=== PATIENT | male | born 1990 | race Two or more races ===

== ENCOUNTER 2021-09-25 16:49 | Inpatient (IN) | payer MEDICAID ==
[~2021-09-25] VITALS: Ht 167.6 cm; Wt 86.6 kg
[2021-09-25] MEDS: LACTATED RINGERS 1,000 ML IV SCH
--- NOTE | 2021-09-25 14:02 | NUR ---
DC PLANN[age] YRS OLD MALE PATIENT WAS ADMITTED FROM HOME WITH A DX OF PANCREATITIS. PATIENT HAS NO MEDICAL HISTORY. LIPASE LEVEL ON ADMISSION 2638. CT ABD SHOWED PANCREATITIS. US ABD SHOWED CHOLELITHIASIS. ADMINISTERED IVF, IV ABX ZOSYN AND PAIN MEDICATION. CONSULTED WITH GI AND GENERAL SURGEON. DC PLAN PER MD'S RECOMMENDATION. CM TO FOLLOW Addendum: 09/28/21 at 1422 by oPlina Rodriguez RN DC PLANNING: S/P LAP ESE DAY #1 TOLERATED WELL CONTINUE IV ABX ZOSYN . SEEN BY GI DR MUSTAFA STATED ERCP TO BE CONSIDERED IF THE INTRAOPERATIVE CHOLANGIOGRAM IS ABNORMAL. DC PLAN TO GO HOME WHEN STABLE. CM TO FOLLOW.
[2021-09-25 16:58] VITALS: BP 148/72
--- NOTE | 2021-09-25 17:02 | NUR ---
Patient ambulated to bed 1 with steady gait
--- NOTE | 2021-09-25 17:18 | NUR ---
31 y/o male with c/o abdominal pain x yesterday. Patient has 10/10 pain to abdomen. Patient has nausea, vomiting and dark urine. Patient denies being around anyone who is sick or eating new food. Patient's last bowel movement was 2 days ago. Medical History: Denies NKDA
[2021-09-25] MEDS ORDERED: ONDANSETRON 4 MG/2 ML VIAL IVP ONE ×2 (17:20→19:15)
--- NOTE | 2021-09-25 17:32 | NUR ---
31/M PRESENTS TO ED WITH C/O ABDOMINAL PAIN, NAUSEA AND VOMITING SINCE LAST NIGHT. PATIENT REPORTS PAIN CAME ON SUDDENLY AND PROGRESSIVELY GOT WORSE THROUGHOUT THE NIGHT. PATIENT STATES HE TOOK MOTRIN WITH NO RELIEF IN PAIN, PATIENT DENIES FEVERS, DIARRHEA OR RECENT SICK CONTACTS.
[2021-09-25 17:43] LABS: BASOPHILS % (AUTO) 0.2 % (0.0-2.0); HEMATOCRIT 46.2 % (36-52); HEMOGLOBIN 15.3 g/dL (12.0-18.0); LYMPHOCYTES # (AUTO) 0.9 K/uL (2.0-11.5); LYMPHOCYTES % (AUTO) 6.8 % (20.5-51.1); MEAN CORPUSCULAR HEMOGLOBIN 30 pg (27-31); MEAN CORPUSCULAR HGB CONC 33 g/dL (33-37); MEAN CORPUSCULAR VOLUME 89.7 fL (80-94); MONOCYTES # (AUTO) 0.8 K/uL (0.8-1.0); MONOCYTES % (AUTO) 6.4 % (1.7-9.3); NEUTROPHILS # (AUTO) 11.4 K/uL (1.8-7.7); NEUTROPHILS % (AUTO) 86.6 % (42.2-75.2); PLATELET COUNT (AUTO) 210 K/uL (140-450); RED BLOOD CELL COUNT(AUTO) 5.15 MIL/uL (4.20-6.10); RED CELL DISTRIBUTION WIDTH 13.4 % (11.6-13.7); WHITE BLOOD COUNT (AUTO) 13.2 K/uL (4.8-10.8)
[2021-09-25 18:15] LABS: ALBUMIN 3.9 g/dL (3.4-5.0); CARBON DIOXIDE 24.7 mmol/L (21-32); CREATININE 0.9 mg/dL (0.6-1.3); POTASSIUM 3.7 mmol/L (3.5-5.1); TOTAL BILIRUBIN 2.2 mg/dL (0.0-1.0)
--- NOTE | 2021-09-25 18:35 | NUR ---
Patient ambulated to restroom, urine sample obtained.
[2021-09-25] MEDS ORDERED: MORPHINE SULFATE 4 MG/ML SYR IVP ONE (18:45)
[2021-09-25] MEDS ORDERED: NACL 0.9% 2,000 ML IV ONE (18:45)
[2021-09-25] MEDS ORDERED: HYDROmorphone PFS 2 MG/ML SYR IVP ONE (19:15)
[2021-09-25 19:18] LABS: BILIRUBIN,URINE 2+ (NEGATIVE); BLOOD, URINE NEGATIVE (NEGATIVE); LEUKOCYTE ESTERASE ,URINE NEGATIVE (NEGATIVE); NITRITE, URINE POSITIVE (NEGATIVE); UGLUCOSE TRACE (NEGATIVE)
[2021-09-25 19:22] LABS: APPEARANCE,URINE CLOUDY (CLEAR); COLOR,URINE AMBER (YELLOW)
--- NOTE | 2021-09-25 19:25 | NUR ---
Patient report given to KEEGAN Hawkins. Transfer of care at this time.
--- NOTE | 2021-09-25 19:45 | NUR ---
PATIENT RESTING IN BED WITH EYES CLOSED. BED LOW AND LOCKED. MOHAMUD SIDE RAILS FOR SAFETY. ALL NEEDS MET.
--- NOTE | 2021-09-25 19:59 | NUR ---
US AT BEDSIDE
[2021-09-25] MEDS ORDERED: PIPERACILLIN/TAZOBACTAM 3.375 GM in DEXTROSE 5% 50 ML IV ONE (21:05)
[2021-09-25] MEDS ORDERED: PIPERACILLIN/TAZOBACTAM 3.375 GM VIAL IV ONE (21:30)
[2021-09-25] MEDS ORDERED: POTASSIUM CHLORIDE 10 MEQ TABER PO PRN (22:05)
[2021-09-25] MEDS ORDERED: guaiFENesin DM 200/20 MG-10 ML 10 ML UDC PO PRN (22:05)
[2021-09-25] MEDS ORDERED: DOCUSATE SODIUM 100 MG GELCAP PO PRN (22:05)
[2021-09-25] MEDS ORDERED: HYDROcodone/APAP 7.5/325 MG 1 TAB PO PRN (22:05)
[2021-09-25] MEDS ORDERED: ONDANSETRON 4 MG/2 ML VIAL IM/IVP PRN (22:05)
[2021-09-25 22:52] LABS: MAGNESIUM 1.7 mg/dL (1.8-2.4); PHOSPHORUS 2.8 mg/dL (2.5-4.9)
--- NOTE | 2021-09-26 00:22 | NUR ---
SPOKE TO TINY AND GAVE UPDATE ON PATIENTS STATUS. WOULD LIKE TO BE UPDATED WITH CHANGES [phone]
--- NOTE | 2021-09-26 04:00 | NUR ---
NEW BAG OF IVF STARTED. TOLERATING WELL. ALL NEEDS MET
[2021-09-26] MEDS: LACTATED RINGERS 1,000 ML IV SCH ×4 (04:28→20:15)
--- NOTE | 2021-09-26 06:30 | NUR ---
PATIENT REPOSITIONED. BED LOW AND LOCKED. ALL NEEDS MET.
--- NOTE | 2021-09-26 07:13 | NUR ---
REPORT GIVEN TO KEEGAN HITCHCOCK. TRANSFER OF CARE.
[2021-09-26 07:18] LABS: BASOPHILS % (AUTO) 0.2 % (0.0-2.0); HEMATOCRIT 41.7 % (36-52); HEMOGLOBIN 14.1 g/dL (12.0-18.0); LYMPHOCYTES # (AUTO) 1.4 K/uL (2.0-11.5); LYMPHOCYTES % (AUTO) 9.7 % (20.5-51.1); MEAN CORPUSCULAR HEMOGLOBIN 30 pg (27-31); MEAN CORPUSCULAR HGB CONC 34 g/dL (33-37); MEAN CORPUSCULAR VOLUME 89.5 fL (80-94); MONOCYTES # (AUTO) 1.1 K/uL (0.8-1.0); NEUTROPHILS # (AUTO) 11.7 K/uL (1.8-7.7); NEUTROPHILS % (AUTO) 82.1 % (42.2-75.2); PLATELET COUNT (AUTO) 192 K/uL (140-450); RED BLOOD CELL COUNT(AUTO) 4.66 MIL/uL (4.20-6.10); RED CELL DISTRIBUTION WIDTH 13.5 % (11.6-13.7); WHITE BLOOD COUNT (AUTO) 14.3 K/uL (4.8-10.8)
--- NOTE | 2021-09-26 07:20 | NUR ---
Report received from KEEGAN Hawkins for transfer of care.
[2021-09-26 08:00] LABS: ALBUMIN 3.4 g/dL (3.4-5.0); BILIRUBIN,DIRECT 0.8 mg/dL (0.0-0.3); TOTAL BILIRUBIN 2.1 mg/dL (0.0-1.0)
[2021-09-26 08:06] LABS: ANION GAP 15.1 (8-16); CARBON DIOXIDE 23.7 mmol/L (21-32); CREATININE 0.8 mg/dL (0.6-1.3); POTASSIUM 3.8 mmol/L (3.5-5.1)
[2021-09-26] MEDS: PANTOPRAZOLE 40 MG TABEC PO SCH (08:51)
[2021-09-26] MEDS: MORPHINE SULFATE 2 MG/ML SYR IVP PRN ×2 (08:54→19:46)
--- NOTE | 2021-09-26 09:27 | NUR ---
Per Dr. Escudero patient can be on clear liquids.
--- NOTE | 2021-09-26 10:06 | NUR ---
Patient is resting in bed, respirations even and unlabored. Needs met by staff.
[2021-09-26] MEDS ORDERED: PIPERACILLIN/TAZOBACTAM 3.375 GM VIAL IV ONE ×2 (11:45→20:04)
[2021-09-26] MEDS: PIPERACILLIN/TAZOBACTAM 3.375 GM in DEXTROSE 5% 50 ML IV SCH ×2 (11:55→20:04)
--- NOTE | 2021-09-26 11:59 | NUR ---
Patient was offered his lunch tray. Patient does not want to eat right now. Tray left at bedside.
--- NOTE | 2021-09-26 12:59 | NUR ---
Patient ambulated to the restroom with steady gait.
[2021-09-26] MEDS: ACETAMINOPHEN 325 MG TAB PO PRN (15:34)
--- NOTE | 2021-09-26 15:34 | NUR ---
Patients oral temp is 100.4. Cooling measure initated.
--- NOTE | 2021-09-26 15:51 | NUR ---
PATIENT HAS BEEN SCREENED AND CATEGORIZED LOW NUTRITION RISK. PATIENT WILL BE SEEN WITHIN 7 DAYS OF ADMISSION. 10/02/[address]
--- NOTE | 2021-09-26 16:42 | NUR ---
Coolong measures working. Current oral temp is 99.2.
--- NOTE | 2021-09-26 17:53 | NUR ---
Patient will be admitted to care of Dr. Winn. Admited to Med-Surg. Will go to room 122-B. Belongings list completed. Report to JEREMY Barnhart.
--- NOTE | 2021-09-26 19:00 | NUR ---
RECEIVED REPORT FROM ER NURSE WICHO ON NEW ADMISSION . PT ARRIVED ON MST UNIT VIA WHEELCHAIR. PT AMBULATED TO RM 122-B GAIT STEADY. PT IS STABLE IN BED.A&OX4. C/O 8/10 ABDOMINAL PAIN. DENIES N/V. ON RM AIR/O2 WITH NO ACUTE DISTRESS. RR EVEN AND UNLABORED WITH EQUAL CHEST RISE. GI INTACT ATE 30% OF CLEAR LIQUID DIET DINNER. PT'S SKIN IS INTACT. PT IS AMBULATORY AND CONTINENT. ALL SAFETY MEASURES IN PLACE. BED IS IN LOW AND LOCKED POSITION. CALL LIGHT IS WITHIN REACH. ENCOURAGED TO CALL FOR ASSISTANCE. WILL CONTINUE TO MONITOR.
--- NOTE | 2021-09-26 19:45 | NUR ---
PT C/O 10/04 ABDOMINAL PAIN. RECEIVED MSO4 2MG IVP WITH RELIEF SLEEPING AFTER 2O MINUTES.
[2021-09-27] VITALS: BP 132/75
[2021-09-27] MEDS: PIPERACILLIN/TAZOBACTAM 3.375 GM in DEXTROSE 5% 50 ML IV SCH ×5 (01:00→23:18)
--- NOTE | 2021-09-27 01:30 | NUR ---
TOLERATING ZOSYN IVPB, NAD. IVF LACTATED RINGERS INFUSING PER PUMP @ 175CC/HR. TOSSING AND TURNING. REQUESTED SOMETHING FOR INSOMNIA. RECEIVED AMBIEN 5MG PO. WILL CONTINUE TO MONITOR.
[2021-09-27] MEDS: ZOLPIDEM 5 MG TAB PO PRN ×2 (01:32→23:21)
[2021-09-27] MEDS: LACTATED RINGERS 1,000 ML IV SCH ×5 (03:40→23:20)
[2021-09-27 04:00] VITALS: BP 132/75
[2021-09-27 05:36] LABS: BARBITURATE, URINE NEGATIVE ng/ml (NEG <=200); BENZODIAZEPINE, URINE NEGATIVE ng/mL (NEG <=200); COCAINE, URINE NEGATIVE ng/mL (NEG <=300)
[2021-09-27 05:37] LABS: CANNABINOID, URINE NEGATIVE ng/mL (NEG <=50); OPIATE, URINE POSITIVE ng/mL (NEG <=2000); PHENCYCLIDINE SCREEN,URINE NEGATIVE ng/mL (NEG <=25)
[2021-09-27 06:03] LABS: BASOPHILS % (AUTO) 0.3 % (0.0-2.0); EOSINOPHILS # (AUTO) 0.1 K/uL (0-0.4); EOSINOPHILS % (AUTO) 1.1 % (0.0-4.0); HEMATOCRIT 37.6 % (36-52); HEMOGLOBIN 12.7 g/dL (12.0-18.0); LYMPHOCYTES # (AUTO) 1.8 K/uL (2.0-11.5); LYMPHOCYTES % (AUTO) 13.6 % (20.5-51.1); MEAN CORPUSCULAR HEMOGLOBIN 30 pg (27-31); MEAN CORPUSCULAR HGB CONC 34 g/dL (33-37); MEAN CORPUSCULAR VOLUME 89.5 fL (80-94); MONOCYTES # (AUTO) 1.4 K/uL (0.8-1.0); MONOCYTES % (AUTO) 10.3 % (1.7-9.3); NEUTROPHILS # (AUTO) 9.8 K/uL (1.8-7.7); NEUTROPHILS % (AUTO) 74.7 % (42.2-75.2); PLATELET COUNT (AUTO) 162 K/uL (140-450); RED CELL DISTRIBUTION WIDTH 13.2 % (11.6-13.7); WHITE BLOOD COUNT (AUTO) 13.2 K/uL (4.8-10.8)
[2021-09-27 06:24] LABS: ANION GAP 12.8 (8-16); CARBON DIOXIDE 25.7 mmol/L (21-32); POTASSIUM 3.5 mmol/L (3.5-5.1)
[2021-09-27 06:38] LABS: CREATININE 0.9 mg/dL (0.6-1.3)
[2021-09-27 07:29] LABS: ALBUMIN 2.8 g/dL (3.4-5.0); BILIRUBIN,DIRECT 0.8 mg/dL (0.0-0.3); TOTAL BILIRUBIN 2.1 mg/dL (0.0-1.0)
--- NOTE | 2021-09-27 07:40 | NUR ---
ENDORSED REPORT TO AM JEREMY GEORGES FOR CONTINUITY OF CARE. PT IS STABLE.ALL NEEDS MET THROUGHOUT THE SHIFT.
--- NOTE | 2021-09-27 07:41 | NUR ---
RECEIVED REPORT FROM CLAY PROCESSING LABOURER NURSE. PATIENT LYING DOWN IN BED SLEEPING, AROUSABLE BY VOICE. NO DISTRESS NOTED. DENIES PAIN AT THIS TIME. IV SITE INTACT, PATENT, AND INFUSING IVF PER MD ORDERS. SKIN INTACT, AMBULATES, AAOX4, ROOM AIR. REVIEWED PLAN OF CARE WITH PATIENT. VERBALIZED UNDERSTANDING. SAFETY MEASURES IN PLACE, CALL LIGHT WITHIN REACH. WILL CONTINUE TO MONITOR.
[2021-09-27 08:00] VITALS: BP 135/73
[2021-09-27] MEDS: PANTOPRAZOLE 40 MG TABEC PO SCH (09:00)
[2021-09-27 09:06] LABS: HEPATITIS A ANTIBODY IGM Negative (Negative); HEPATITIS B CORE AB TOTAL Negative (Negative); HEPATITIS B SURFACE ANTIBODY Non Reactive (.); HEPATITIS B SURFACE ANTIGEN Negative (Negative)
--- NOTE | 2021-09-27 09:15 | NUR ---
IVF REPLACED. PO MEDS SCHEDULED NOT GIVEN PATIENT IS NPO. WILL CONTINUE TO MONITOR.
--- NOTE | 2021-09-27 12:18 | NUR ---
SCHEDULED MEDICATIONS DUE GIVEN. WILL CONTINUE TO MONITOR.
[2021-09-27 16:00] VITALS: BP 118/68
--- NOTE | 2021-09-27 17:11 | NUR ---
TEMPERATURE 100.1, COOLING MEASURES STARTED. TYLENOL PRN GIVEN AT THIS TIME. WILL CONTINUE TO MONITOR.
[2021-09-27] MEDS: ACETAMINOPHEN 325 MG TAB PO PRN (17:13)
--- NOTE | 2021-09-27 19:15 | NUR ---
RECEIVED ENDORSEMENT FROM DAY SHIFT NURSE FOR CONTINUITY OF PT CARE. PT IS AWAKE, ALERT AND VERBALLY RESPONSIVE. IS AT BED SIDE. PT VERBALIZED OF SLIGHT AND BEARABLE PAIN ON ABDOMINAL AREA. SKIN INTACT AND WARM. PT DENIED OF HAVING HEADACHE, DIZZINESS OR NAUSEA. NO VOMITING FELT. SALINE LOCK AT LEFT AC - 20 G, INTACT AND PATENT. LACTATE RINGERS IS INFUSING WELL AT 175ML/HR. VITAL CHECKED B/P-127/80, P-79, R-18, T-98.8, O2 SAT-97%. NO SOB OR DISTRESS.
--- NOTE | 2021-09-27 19:18 | NUR ---
GAVE REPORT TO HATCHERY SUPERVISOR NURSE FOR CONTINUITY OF CARE. PATIENT IN STABLE CONDITION.
--- NOTE | 2021-09-27 22:30 | NUR ---
MARCELA WAITE CALLED FOR PT PREPARATION FOR PROCEDURE TOMORROW. MD ORDER TO PT. PTT, CBC AND CHEM [address] OROSCO ALSO CHECK IF PT IS TAKING DRUGS OR HAVING HISTORY OF TAKING DRUGS. PT DENIED AND STATED NEVER USED ANY DRUGS. ORDER CARRY OUT. PT IS NPO AFTER MIDNIGHT.
--- NOTE | 2021-09-27 23:21 | NUR ---
PT VERBALIZED OF UNABLE TO SLEEP, SLEEPING MEDICATION ADMINISTERED ORDER.
[2021-09-27] MEDS: MORPHINE SULFATE 2 MG/ML SYR IVP PRN (23:54)
--- NOTE | 2021-09-27 23:54 | NUR ---
PT IS ON BED AND LAYING ON HIS STOMACH. HE VERBALIZED OF SEVERE PAIN 9/10 ON STOMACH AREA. PAIN MEDICATION MORPHINE, ADMINISTERED ORDERED.
[2021-09-28] VITALS: BP 127/80
--- NOTE | 2021-09-28 00:21 | NUR ---
SLEEPING PILL NOTED TO BE EFFECTIVE, PT STILL AWAKE BUT NOTED SLEEPY.
--- NOTE | 2021-09-28 00:54 | NUR ---
REASSESSMENT ON PAIN MEDICATION. PT STATED, PAIN MED IS EFFECTIVE. PAIN IS DOWN TO 1/10, PT VERBALIZED OF TOLERATE MILD PAIN.
--- NOTE | 2021-09-28 02:30 | NUR ---
PT IS SLEEPING.
[2021-09-28] MEDS: PIPERACILLIN/TAZOBACTAM 3.375 GM in DEXTROSE 5% 50 ML IV SCH ×3 (05:31→17:45)
[2021-09-28 05:47] LABS: BASOPHILS % (AUTO) 0.4 % (0.0-2.0); EOSINOPHILS # (AUTO) 0.3 K/uL (0-0.4); EOSINOPHILS % (AUTO) 2.8 % (0.0-4.0); HEMATOCRIT 37.5 % (36-52); HEMOGLOBIN 12.5 g/dL (12.0-18.0); LYMPHOCYTES % (AUTO) 16.3 % (20.5-51.1); MEAN CORPUSCULAR HEMOGLOBIN 30 pg (27-31); MEAN CORPUSCULAR HGB CONC 33 g/dL (33-37); MEAN CORPUSCULAR VOLUME 90.1 fL (80-94); MONOCYTES # (AUTO) 1.3 K/uL (0.8-1.0); MONOCYTES % (AUTO) 10.7 % (1.7-9.3); NEUTROPHILS # (AUTO) 8.4 K/uL (1.8-7.7); NEUTROPHILS % (AUTO) 69.8 % (42.2-75.2); PLATELET COUNT (AUTO) 178 K/uL (140-450); RED BLOOD CELL COUNT(AUTO) 4.16 MIL/uL (4.20-6.10); WHITE BLOOD COUNT (AUTO) 12.1 K/uL (4.8-10.8)
[2021-09-28 06:03] LABS: PROTHROMBIN TIME 10.5 secs (10.8-13.4)
[2021-09-28 06:05] LABS: ANION GAP 13.5 (8-16); CARBON DIOXIDE 25.5 mmol/L (21-32); CREATININE 0.9 mg/dL (0.6-1.3)
[2021-09-28] MEDS: LACTATED RINGERS 1,000 ML IV SCH ×2 (07:15→12:17)
--- NOTE | 2021-09-28 07:22 | NUR ---
PT IS ON STABLE CONDITION, AWAKE, ALERT AND VERBALLY RESPONSIVE. IV FLUID LR IS INFUSING WELL AT 175ML/HR. NO SOB OR DISTRESS. ALL SAFETY MEASURES IN PLACE. CALL LIGHT WITHIN THE REACH. ENDORSED TO DAY SHIFT NURSE FOR CONTINUITY OF PT CARE.
--- NOTE | 2021-09-28 07:30 | NUR ---
RECEIVED REPORT FROM NIGHTSHIFT NURSE. PT A/O X4. ABLE TO MAKE NEEDS KNOWN. NO SOB OR RESPIRATORY DISTRESS. ON RA. DENIES PAIN AT THIS TIME. LAC#20 WITH LR @ 175 ML/HR. NEEDS ALL MET AT THIS TIME. SAFETY MEASURES IN PLACE.
--- NOTE | 2021-09-28 08:05 | NUR ---
PT TRANSPORTED TO LAPAROSCOPIC CHOLECYSTECTOMY.
[2021-09-28] MEDS ORDERED: LIDOCAINE 1% 500 MG/50 ML VIAL ONE (08:28)
[2021-09-28] MEDS ORDERED: BUPIVACAINE-MPF/EPI 0.25% 10 ML VIAL INJ ONE (08:28)
[2021-09-28] MEDS: PANTOPRAZOLE 40 MG TABEC PO SCH (09:00)
[2021-09-28] MEDS ORDERED: SEVOFLURANE 250 ML BTL INH ONE (09:09)
[2021-09-28] MEDS ORDERED: fentaNYL citrate 0.05 MG/ML VIAL ONE (09:16)
[2021-09-28] MEDS ORDERED: PROPOFOL 200 MG/20 ML VIAL IV ONE (10:01)
[2021-09-28] MEDS ORDERED: SUCCINYLCHOLINE CHLORIDE 200 MG/10 ML VIAL IVP ONE (10:01)
[2021-09-28] MEDS ORDERED: ROCURONIUM 50 MG/5 ML VIAL IV ONE (10:02)
[2021-09-28] MEDS ORDERED: KETOROLAC 30 MG/ML VIAL ONE (10:02)
[2021-09-28] MEDS ORDERED: ONDANSETRON 4 MG/2 ML VIAL ONE (10:02)
[2021-09-28] MEDS ORDERED: NEOSTIGMINE 1:1000 10 MG/10 ML VIAL ONE (10:35)
[2021-09-28] MEDS ORDERED: GLYCOPYRROLATE 0.2 MG/ML VIAL ONE ×3 (10:35)
[2021-09-28] MEDS ORDERED: hydrALAZINE 20 MG/ML VIAL IVP PRN (10:57)
[2021-09-28] MEDS ORDERED: METOCLOPRAMIDE 10 MG/2 ML INJ VIAL IVP PRN (10:57)
[2021-09-28] MEDS ORDERED: LABETALOL 20 MG/4 ML VIAL IVP PRN (10:57)
[2021-09-28] MEDS ORDERED: LACTATED RINGERS 1,000 ML IV SCH (11:00)
[2021-09-28] MEDS ORDERED: HYDROmorphone 1 MG/ML AMP IVP PRN ×2 (11:00→12:50)
[2021-09-28 12:00] VITALS: BP 120/72
--- NOTE | 2021-09-28 12:00 | NUR ---
PT BACK FROM SURGERY. PT STATES NO PAIN. INCISION X4 WITH DERMABOND. NO S/S OF INFECTION. LR @ 175 ML/HR RESTARTED ON L HAND #20. ZOSYN STARTED ON L AC #20 @ 100 ML/HR. NEEDS ALL MET AT THIS TIME. SAFETY MEASURES IN PLACE.
--- NOTE | 2021-09-28 13:00 | NUR ---
LR @ 175 DISCONTINUED. L HAND #20 SL. L AC #20 TKO. POC DISCUSSED WITH . VERBALIZED UNDERSTANDING.
[2021-09-28 16:00] VITALS: BP 137/81
--- NOTE | 2021-09-28 17:44 | NUR ---
PT ASLEEP, RR EVEN & UNLABORED. HOB ELEVATED. AT BEDSIDE. SAFETY MEASURES IN PLACE.
--- NOTE | 2021-09-28 17:50 | NUR ---
PT REFUSED SWALLOW EVALUATION BY ST. Addendum: 09/28/21 at 1917 by Agency NurseJEREMY RN WRONG PATIENT
--- NOTE | 2021-09-28 19:17 | NUR ---
[facility] FOR CONTINUITY OF CARE.
--- NOTE | 2021-09-28 19:20 | NUR ---
RECEIVED PT FROM DAY SHIFT RN FOR CONTINUITY OF CARE. PT A&0 X 4, AWAKE, AT BEDSIDE. PT ON ROOM AIR, BREATHING EQUAL AND UNLABORED. NO COMPLAINS OF SOB. PT HAS 4 INCISIONS ON ABDOMEN S/P LAP ESE TODAY. PT CURRENTLY DENIES PAIN ON ABDOMEN BUT DO COMPLAIN OF SOME THROAT PAIN. PT HAS IV ON LAC G20 AND LH G20. ALL PRECAUTIONS IN PLACE.CALL LIGHT WITHIN REACH. WILL CONTINUE TO MONITOR.
[2021-09-28 20:00] VITALS: BP 121/77
[2021-09-28] MEDS: MORPHINE SULFATE 2 MG/ML SYR IVP PRN (20:27)
--- NOTE | 2021-09-28 20:30 | NUR ---
PT COMPLAINED OF 7/10 ABDOMINAL PAIN. PRN PAIN MED GIVEN. WILL CONTINUE TO MONITOR.
[2021-09-28] MEDS: ZOLPIDEM 5 MG TAB PO PRN (21:39)
--- NOTE | 2021-09-28 21:45 | NUR ---
PT GIVEN SLEEP MEDICATION, REPORTS HAVING HARD TIME SLEEPING.
[2021-09-29] VITALS: BP 129/86
[2021-09-29] MEDS: PIPERACILLIN/TAZOBACTAM 3.375 GM in DEXTROSE 5% 50 ML IV SCH ×4 (00:21→17:43)
--- NOTE | 2021-09-29 02:41 | NUR ---
PT ASLEEP. RESPIRATIONS EQUAL AND UNLABORED, NO DISTRESS NOTED. ALL PRECAUTIONS IN PLACE. CALL LIGHT WITHIN REACH. WILL CONTINUE TO MONITOR.
[2021-09-29 04:00] VITALS: BP 134/77
[2021-09-29] MEDS: HYDROcodone/APAP 5/325 MG 1 TAB TAB PO PRN ×2 (04:20→10:45)
[2021-09-29] MEDS: MORPHINE SULFATE 2 MG/ML SYR IVP PRN (05:09)
--- NOTE | 2021-09-29 05:48 | NUR ---
SCHEDULED MEDICATION GIVEN. PT TOLERATED WELL. ALL PRECAUTIONS IN PLACE. WILL CONTINUE TO MONITOR.
[2021-09-29 06:13] LABS: BASOPHILS % (AUTO) 0.2 % (0.0-2.0); EOSINOPHILS # (AUTO) 0.2 K/uL (0-0.4); HEMATOCRIT 35.5 % (36-52); HEMOGLOBIN 12.1 g/dL (12.0-18.0); LYMPHOCYTES # (AUTO) 1.8 K/uL (2.0-11.5); LYMPHOCYTES % (AUTO) 18.6 % (20.5-51.1); MEAN CORPUSCULAR HEMOGLOBIN 31 pg (27-31); MEAN CORPUSCULAR HGB CONC 34 g/dL (33-37); MEAN CORPUSCULAR VOLUME 89.7 fL (80-94); MONOCYTES # (AUTO) 0.9 K/uL (0.8-1.0); MONOCYTES % (AUTO) 9.4 % (1.7-9.3); NEUTROPHILS # (AUTO) 6.9 K/uL (1.8-7.7); NEUTROPHILS % (AUTO) 69.8 % (42.2-75.2); PLATELET COUNT (AUTO) 195 K/uL (140-450); RED BLOOD CELL COUNT(AUTO) 3.95 MIL/uL (4.20-6.10); RED CELL DISTRIBUTION WIDTH 13.1 % (11.6-13.7); WHITE BLOOD COUNT (AUTO) 9.9 K/uL (4.8-10.8)
[2021-09-29 07:07] LABS: ALBUMIN 2.6 g/dL (3.4-5.0); ANION GAP 14.7 (8-16); CARBON DIOXIDE 21.9 mmol/L (21-32); CREATININE 0.8 mg/dL (0.6-1.3); POTASSIUM 3.6 mmol/L (3.5-5.1); TOTAL BILIRUBIN 1.5 mg/dL (0.0-1.0)
--- NOTE | 2021-09-29 07:36 | NUR ---
PT IS STABLE. ENDORSED TO AM SHIFT NURSE FOR CONTINUITY OF CARE.
--- NOTE | 2021-09-29 07:38 | NUR ---
RECEIVED PT FROM MOBILE GAME ENGINEER RN FOR CONTINUITY OF CARE. PT A&0 X 4, ABLE TO VERBALIZE NEEDS. PT ON ROOM AIR, BREATHING EQUAL AND UNLABORED. NO COMPLAINS OF SOB. PT HAS 4 INCISIONS ON ABDOMEN S/P LAP ESE 09/28. PT CURRENTLY DENIES PAIN ON ABDOMEN AT THE MOMENT. PT HAS IV ON LAC G20 AND LH G20. PLAN OF CARE DISCUSSED. ALL PRECAUTIONS IN PLACE. CALL LIGHT WITHIN REACH. WILL CONTINUE TO MONITOR.
[2021-09-29 08:00] VITALS: BP 124/83
--- NOTE | 2021-09-29 08:00 | NUR ---
REMOVED LAC IV DUE TO INFILTRATION
[2021-09-29] MEDS: PANTOPRAZOLE 40 MG TABEC PO SCH (09:06)
--- NOTE | 2021-09-29 09:30 | NUR ---
ALL SCHEDULED MEDS GIVEN. PT IS STABLE. NO DISTRESS NOTED. WILL CONTINUE TO MONITOR.
[2021-09-29 12:00] VITALS: BP 122/83
--- NOTE | 2021-09-29 12:30 | NUR ---
ALL SCHEDULED MEDS GIVEN. PT IS STABLE. NO DISTRESS NOTED. WILL CONTINUE TO MONITOR.
--- NOTE | 2021-09-29 14:30 | NUR ---
CHECKED ON PATIENT. PT IS ASLEEP. NO DISTRESS NOTED. WILL CONTINUE TO MONITOR.
[2021-09-29 16:00] VITALS: BP 133/84
[2021-09-29] MEDS ORDERED: LEVO750T51 PO (16:05)
[2021-09-29] MEDS ORDERED: IBUP-2213 PO (16:07)
--- NOTE | 2021-09-29 17:45 | NUR ---
ASSISTED PATIENT TO THE BATHROOM.
--- NOTE | 2021-09-29 19:13 | NUR ---
ENDORSED TO INSULATION MACHINE OPERATOR NURSE FOR CONTINUITY OF CARE. PT IS STABLE.
--- NOTE | 2021-09-29 19:20 | NUR ---
RECEIVED PT FROM DAY SHIFT RN FOR CONTINUITY OF CARE. PT ASLEEP.AROUSABLE WHEN CALLED BY NAME, PT ON ROOM AIR, BREATHING EQUAL AND UNLABORED. NO COMPLAINS OF SOB. PT HAS 4 INCISIONS ON ABDOMEN S/P LAP ESE 09/28/21. PT CURRENTLY DENIES PAIN ON ABDOMEN . PT HAS IV ON LAC G20 AND LH G20. ALL PRECAUTIONS IN PLACE.CALL LIGHT WITHIN REACH. WILL CONTINUE TO MONITOR.
[2021-09-29 20:00] VITALS: BP 127/80
--- NOTE | 2021-09-29 21:30 | NUR ---
PT EATING DINNER. NO COMPLAINTS OF PAIN. WILL CONTINUE TO MONITOR.
--- NOTE | 2021-09-29 23:14 | NUR ---
PT AMBULATED TO RESTROOM. PT WITH STEADY GATE. NO DISTRESS NOTED. WILL CONTINUE TO MONITOR.
[2021-09-30] VITALS: BP 130/72
[2021-09-30] MEDS: PIPERACILLIN/TAZOBACTAM 3.375 GM in DEXTROSE 5% 50 ML IV SCH ×2 (00:50→05:06)
[2021-09-30] MEDS: HYDROcodone/APAP 5/325 MG 1 TAB TAB PO PRN (00:58)
[2021-09-30] MEDS: ZOLPIDEM 5 MG TAB PO PRN (00:58)
--- NOTE | 2021-09-30 02:00 | NUR ---
PT ASLEEP. RESPIRATIONS EQUAL AND UNLABORED, NO DISTRESS NOTED. ALL PRECAUTIONS IN PLACE. CALL LIGHT WITHIN REACH. WILL CONTINUE TO MONITOR.
[2021-09-30 04:00] VITALS: BP 127/72
--- NOTE | 2021-09-30 05:00 | NUR ---
SCHEDULED MEDICATION GIVEN. PT TOLERATED WELL. ALL PRECAUTIONS IN PLACE. WILL CONTINUE TO MONITOR.
[2021-09-30 06:17] LABS: BASOPHILS % (AUTO) 0.3 % (0.0-2.0); EOSINOPHILS # (AUTO) 0.3 K/uL (0-0.4); EOSINOPHILS % (AUTO) 3.9 % (0.0-4.0); HEMATOCRIT 34.3 % (36-52); HEMOGLOBIN 11.6 g/dL (12.0-18.0); LYMPHOCYTES # (AUTO) 2.1 K/uL (2.0-11.5); MEAN CORPUSCULAR HEMOGLOBIN 30 pg (27-31); MEAN CORPUSCULAR HGB CONC 34 g/dL (33-37); MEAN CORPUSCULAR VOLUME 88.6 fL (80-94); MONOCYTES # (AUTO) 0.9 K/uL (0.8-1.0); MONOCYTES % (AUTO) 10.8 % (1.7-9.3); NEUTROPHILS # (AUTO) 5.1 K/uL (1.8-7.7); PLATELET COUNT (AUTO) 227 K/uL (140-450); RED BLOOD CELL COUNT(AUTO) 3.87 MIL/uL (4.20-6.10); RED CELL DISTRIBUTION WIDTH 13.1 % (11.6-13.7); WHITE BLOOD COUNT (AUTO) 8.4 K/uL (4.8-10.8)
[2021-09-30 06:25] LABS: ANION GAP 13.3 (8-16); CARBON DIOXIDE 25.3 mmol/L (21-32); CREATININE 0.9 mg/dL (0.6-1.3); POTASSIUM 3.6 mmol/L (3.5-5.1)
--- NOTE | 2021-09-30 06:26 | NUR ---
PT IS STABLE. NO ACUTE EVENTS THROUGHOUT THE NIGHT. NO DISTRESS NOTED. ALL PRECAUTIONS IN PLACE. CALL LIGHT WITHIN REACH. WILL ENDORSE TO AM SHIFT NURSE.
[2021-09-30] MEDS ORDERED: LEVO750T51 PO (07:05)
[2021-09-30] MEDS ORDERED: IBUP-2213 PO (07:06)
--- NOTE | 2021-09-30 07:30 | NUR ---
RECEIVED REPORT FROM COPYWRITING INTERN RN FOR CONTINUITY OF CARE. AOX 4, ABLE TO VERBALIZE NEEDS. PT ON ROOM AIR, BREATHING EQUAL AND UNLABORED. NO COMPLAINS OF SOB. PT HAS 4 INCISIONS ON ABDOMEN S/P LAP ESE 09/28. PT CURRENTLY DENIES PAIN ON ABDOMEN. PT HAS IV ON LAC G20 AND LH G20. PLAN OF CARE DISCUSSED. ALL PRECAUTIONS IN PLACE. CALL LIGHT WITHIN REACH. WILL CONTINUE TO MONITOR.
[2021-09-30 08:00] VITALS: BP 124/73
[2021-09-30] MEDS: PANTOPRAZOLE 40 MG TABEC PO SCH (08:29)
--- NOTE | 2021-09-30 09:30 | NUR ---
DR SOLANO AT BEDSIDE, SPOKE TO PT REGARDING DC PLAN
--- NOTE | 2021-09-30 10:50 | NUR ---
Patient discharged with v/s stable. Written and verbal after care instructions given and explained. Patient alert, oriented and verbalized understanding of instructions. Wheel Chair Assisted with to car. All questions addressed prior to discharge. ID band removed. Patient advised to follow up with PMD. Rx given. Patient educated on indication of medication including possible reaction and side effects. Opportunity to ask questions provided and answered.
== END 2021-09-30 11:00 | disposition home or self-care (01) | DRG 263 ==
LOC: MED 16:49 → MMU 22:32 → MTU 09-26 17:06
PROVIDERS: ADMIT Student in an Organized Health Care Education/Training Program; ATTEND Student in an Organized Health Care Education/Training Program
PROC: BF121ZZ Fluoroscopy of Gallbladder using Low Osmolar Contrast (ICD-10-PCS; 2021-09-28)
PROC: 0FT44ZZ Resection of Gallbladder, Percutaneous Endoscopic Approach (ICD-10-PCS; principal; 2021-09-28 08:30)
DX: K85.10 Biliary acute pancreatitis without necrosis or infection (principal); R65.10 Systemic inflammatory response syndrome (SIRS) of non-infectious origin without acute organ dysfunction; K76.0 Fatty (change of) liver, not elsewhere classified; N20.0 Calculus of kidney; Z20.822 Contact with and (suspected) exposure to COVID-19; E66.9 Obesity, unspecified; Z68.30 Body mass index [BMI] 30.0-30.9, adult
CPT/HCPCS: 36415; 76705; 80048; 80053; 80076; 80305; 81003; 82150; 83605; 83690; 83735; 83880; 84100; 85025; 85610; 85730; 86704; 86706; 86708; 86709; 86803; 87040; 87081; 87086; 87340; 88304; 96365; 96375; 96376; 99285; C1887; J0330; J1170; J1885; J2001; J2270; J2405; J2543; J2704; J2710; J3010; J3490; J7060; J7120; Q0092